=== PATIENT | male | born 1975 | race Caucasian/White ===

== ENCOUNTER 2022-05-12 12:19 | Outpatient (REF) | payer OTHER, SELFPAY ==
--- NOTE | ~2022-05-12 | XR_ITS ---
EXAMINATION: XR ANKLE, LEFT CLINICAL INFORMATION: Sprain of ligament COMPARISON: None TECHNIQUE: AP, lateral, and mortise views of the left ankle. FINDINGS: Possible subchondral lucency along the medial dome of the talus with sclerotic margin measuring 7 mm transverse not conspicuous on the lateral radiograph. Small posterior calcaneal spur. Small marginal osteophytes about the anterior aspect of the tibial talar joint indicative of mild arthrosis. No fracture. Soft tissues normal. XR/XR ankle LT min 3V IMPRESSION: 1. Mild arthrosis of the tibiotalar joint. Possible subchondral lucency along the medial dome of the talus. This is suspicious for an osteochondral lesion/osteochondritis dissecans.
== END 2022-05-12 12:20 | disposition home or self-care (01) ==
LOC: HO.HMGCX 12:19
PROVIDERS: Visit Provider Internal Medicine
DX: S93.402A Sprain of unspecified ligament of left ankle, initial encounter (principal)
CPT/HCPCS: 73610